=== PATIENT | male | born 1980 | race Two or more races ===

== ENCOUNTER 2018-10-25 19:28 | Emergency (ER) | payer OTHER ==
[~2018-10-25] VITALS: Ht 177.8 cm; Wt 104.3 kg
[2018-10-25 19:46] VITALS: BP 139/78
[2018-10-25] MEDS ORDERED: HYDROcodone-ACET 10/325MG TAB PO ONE (21:15)
[2018-10-25] MEDS ORDERED: cefTRIAXone SOD 1,000 MG VL IM ONE (21:15)
[2018-10-25] MEDS ORDERED: BENZOCAINE (DENTAL) 20 % SPRAY 60ML MT ONE (21:15)
== END 2018-10-25 21:44 | disposition home or self-care (01) ==
LOC: ER 19:28
DX: K04.7 Periapical abscess without sinus (principal)
CPT/HCPCS: 96372; 99283; J0696

== ENCOUNTER 2019-06-11 23:22 | Emergency (ER) | payer OTHER ==
[~2019-06-11] VITALS: Ht 177.8 cm; Wt 99.8 kg
[2019-06-12 00:23] VITALS: BP 152/90
== END 2019-06-12 01:18 | disposition left against medical advice (07) ==
LOC: ER 23:22
DX: K08.89 Other specified disorders of teeth and supporting structures (principal); Z53.21 Procedure and treatment not carried out due to patient leaving prior to being seen by health care provider

== ENCOUNTER 2022-01-18 10:23 | Emergency (ER) | payer MEDICAID, OTHER ==
[~2022-01-18] VITALS: Ht 180.3 cm; Wt 106.6 kg
[2022-01-18] MEDS ORDERED: KETOROLAC TROMETH 60MG/2ML VIAL IM ONE (11:15)
[2022-01-18 11:30] VITALS: BP 144/83
[2022-01-18] MEDS ORDERED: BACL10TA PO (12:33)
[2022-01-18] MEDS ORDERED: IBUP800T27 PO (12:33)
== END 2022-01-18 12:43 | disposition home or self-care (01) ==
LOC: ER 10:23
DX: S29.012A Strain of muscle and tendon of back wall of thorax, initial encounter (principal); F17.210 Nicotine dependence, cigarettes, uncomplicated; Z79.1 Long term (current) use of non-steroidal anti-inflammatories (NSAID); Z79.899 Other long term (current) drug therapy; X58.XXXA Exposure to other specified factors, initial encounter; Y93.89 Activity, other specified; Y92.89 Other specified places as the place of occurrence of the external cause; Y99.8 Other external cause status
CPT/HCPCS: 71046; 96372; 99283; J1885

== ENCOUNTER 2024-11-18 10:18 | Emergency (ER) | payer MEDICAID ==
[~2024-11-18] VITALS: Ht 170.2 cm; Wt 91.1 kg
[~2024-11-18 10:18] MED LIST: BACL10TA PO; IBUP-1456 PO
[2024-11-18 10:37] VITALS: BP 125/78; PULSE 84; RESP 17; O2SAT 99
--- NOTE | 2024-11-18 14:25 | DVH ---
EXAM: XY L SHOULDER 2+ VIEW XRAY CLINICAL INDICATION: shoulder pain TECHNIQUE: XY L SHOULDER 2+ VIEW XRAY Comparison: None FINDINGS/IMPRESSION: There is no evidence of acute fracture or dislocation. The visualized joint space is well maintained. The alignment is anatomical. There is no radiopaque foreign body.
[2024-11-18] MEDS ORDERED: HYDR-4798 PO (14:59)
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
== END 2024-11-18 17:29 | disposition home or self-care (01) ==
LOC: ER 10:18
DX: M25.512 Pain in left shoulder (principal); F17.210 Nicotine dependence, cigarettes, uncomplicated
CPT/HCPCS: 73030